=== PATIENT | male | born 1945 | race Caucasian/White ===

== ENCOUNTER 2016-12-01 11:04 | Emergency (ER) | payer OTHER ==
[2016-12-01 11:12] VITALS: BP 144/82; TEMP 97; BMI 34.1
--- NOTE | 2016-12-01 11:21 | ED.PDOC ---
General ED Provider: Dr. HUGH VORA-ER Chief Complaint: Rash Stated Complaint: kiki got this blistery rash above my right eye--it hurts Time Seen by Physician: 11:18 Mode of Arrival: Walk-In Information Source: Patient, Family Exam Limitations: No limitations Primary Care Provider: WHITNEY IBANEZ Nursing and Triage Documentation Reviewed and Agree: Yes Skin Complaint Exam - Skin Rash/Itching Complaint/Exam Onset/Duration: 24hrs Symptoms Are: Still present Initial Severity: Mild Current Severity: Moderate Location: above right eye Aggravating: Reports: None Alleviating: Reports: None Associated Signs and Symptoms: Denies: Difficulty breathing, Fever, Chills Skin Findings: Present: Vesicles, Lesions Differential Diagnoses: Varicella Zoster Review of Systems - Review Of Systems Constitutional: Reports: No symptoms Eyes: Reports: No symptoms Ears, Nose, Mouth, Throat: Reports: No symptoms Respiratory: Reports: No symptoms Cardiac: Reports: No symptoms GI: Reports: No symptoms : Reports: No symptoms Musculoskeletal: Reports: No symptoms Skin: Reports: Lesions (vesicular lesions above right eye), Rash Neurological: Reports: No symptoms Endocrine: Reports: No symptoms Hematologic/Lymphatic: Reports: No symptoms All Other Systems: Reviewed and Negative Past Medical History - Past Medical History Endocrine: Reports: Unknown Cardiovascular: Reports: Unknown Respiratory: Reports: Unknown Hematological: Reports: Unknown Gastrointestinal: Reports: Unknown Genitourinary: Reports: Unknown Neuro/Psych: Reports: Unknown Musculoskeletal: Reports: Unknown Cancer: Reports: Unknown - Surgical History General Surgical History: Reports: Other - Family History Family History: Reports: Unknown - Social History Smoking Status: Never smoker Hx Substance Use: No Alcohol Screening: None Lives: With family Physical Exam - Physical Exam Appearance: Well-appearing, No pain distress, Well-nourished Pain Distress: Mild Eyes: BELA, EOMI, Conjunctiva clear ENT: Ears normal, Nose normal, Oropharynx normal Neck: Supple Respiratory: Airway patent, Breath sounds clear, Breath sounds equal, Respirations nonlabored Cardiovascular: RRR, Pulses normal, No rub, No murmur GI/: Soft, Nontender, No masses, Bowel sounds normal, No Organomegaly Musculoskeletal: Normal strength, ROM intact, No edema, No calf tenderness Skin: Warm (noted vesicular rash over right eye into the eyebrown with edema of the upper lid) Neurological: Sensation intact, Motor intact, Reflexes intact, Cranial nerves intact, Alert, Oriented Psychiatric: Affect appropriate, Mood appropriate Critical Care Note - Critical Care Note Total Time (mins): 0 Course - Course Vital Signs: Temp Pulse Resp BP Pulse Ox 12/01/16 11:06 97.0 F L 88 16 144/82 H 97 Departure - Departure Time of Disposition: 11:20 Disposition: HOME SELF-CARE Discharge Problem: Herpes zoster Qualifiers: Herpes zoster complications: unspecified herpes zoster complication Qualifier Code: (B02.8) Zoster with other complications Instructions: Shingles (ED) Condition: Good Pt referred to PMD for follow-up: Yes Additional Instructions: zovirax 800mg qid x 7days---norco 7.5mg q 4hrs prn pain #15---see your eye doctor tomorrow to make certain no ocular involvement Allergies/Adverse Reactions: Allergies IVP dye Allergy (Severe, Uncoded 12/01/16 11:10) SOB, N/V Home Medications: Ambulatory Orders Allopurinol 300 mg PO DAILY 04/18/14 Aspirin [Ecotrin] 81 mg PO DAILY 04/18/14 Enalapril Maleate 20 mg PO DAILY 04/18/14 Exenatide [Byetta] 5 mcg SQ BID 04/18/14 Metoprolol Succinate 50 mg PO 04/18/14 Multivitamin [Daily Multiple Vitamin] 1 each PO DAILY 04/18/14 Rosuvastatin Calcium [Crestor] 20 mg PO DAILY 04/18/14 Disposition Discussed With: Patient, Family
== END 2016-12-01 11:30 | disposition home or self-care (01) ==
LOC: ED 11:04
DX: B02.8 Zoster with other complications (principal)
CPT/HCPCS: 99282

== ENCOUNTER 2017-07-04 10:41 | Emergency (ER) ==
[2017-07-04 10:53] VITALS: BP 149/85; TEMP 97.7; BMI 34.6
[2017-07-04] MEDS ORDERED: LIDOCAINE HCL 1% SDV SUBCUT STA (11:17)
[2017-07-04] MEDS ORDERED: TETANUS DIPHTHERIA TOXOIDS IM ONE (11:17)
--- NOTE | 2017-07-04 11:31 | ED.PDOC ---
General ED Provider: Dr. JOHANNA GREENFIELD Chief Complaint: Laceration Stated Complaint: LACERATION LEFT FOREARM Time Seen by Physician: 11:00 (BY A SHARP OBJECT) Mode of Arrival: Walk-In Information Source: Patient Exam Limitations: No limitations Primary Care Provider: WHITNEY IBANEZ Nursing and Triage Documentation Reviewed and Agree: Yes (SEE PHOTOS) Skin Complaint Exam - Laceration/Upper Ext. Complaint/Exam Location of Injury: Left (UPPER EXT SEE PHOTO TODAY 1 HR AGO) Mechanism of Injury: Laceration Onset/Duration: 1 HR Symptoms Are: Still present Initial Severity: Mild Current Severity: Mild Aggravating: None Alleviating: None Associated Signs and Symptoms: Denies: Fever, Chills, Erythema, Numbness, Tingling Differential Diagnoses: Laceration Review of Systems - Review Of Systems Constitutional: Reports: No symptoms Eyes: Reports: No symptoms Ears, Nose, Mouth, Throat: Reports: No symptoms Respiratory: Reports: No symptoms Cardiac: Reports: No symptoms GI: Reports: No symptoms : Reports: No symptoms Musculoskeletal: Reports: No symptoms Skin: Reports: Other (LACERATION) Neurological: Reports: No symptoms Endocrine: Reports: No symptoms Hematologic/Lymphatic: Reports: No symptoms All Other Systems: Reviewed and Negative Past Medical History - Past Medical History Previously Healthy: Yes Endocrine: Reports: Unknown Cardiovascular: Reports: Unknown Respiratory: Reports: Unknown Hematological: Reports: Unknown Gastrointestinal: Reports: Unknown Genitourinary: Reports: Unknown Neuro/Psych: Reports: Unknown Musculoskeletal: Reports: Unknown Cancer: Reports: Unknown - Surgical History General Surgical History: Reports: Other - Family History Family History: Reports: Unknown - Social History Smoking Status: Never smoker Hx Substance Use: No Alcohol Screening: None Physical Exam - Physical Exam Appearance: Well-appearing, No pain distress, Well-nourished Eyes: BELA, EOMI, Conjunctiva clear ENT: Ears normal, Nose normal, Oropharynx normal Respiratory: Airway patent, Breath sounds clear, Breath sounds equal, Respirations nonlabored Cardiovascular: RRR, Pulses normal, No rub, No murmur GI/: Soft, Nontender, No masses, Bowel sounds normal, No Organomegaly Musculoskeletal: Normal strength, ROM intact, No edema, No calf tenderness Skin: Warm, Dry (1 CM LACERATION LEFT FOREARM SEE PHOTOS) Neurological: Sensation intact, Motor intact, Reflexes intact, Cranial nerves intact, Alert, Oriented Psychiatric: Affect appropriate, Mood appropriate Procedures - Laceration/Wound Repair No standard instances Wound Description: Linear Wound Length (cm): 1 Wound Width: 2MM Wound Depth: 1MM Wound Explored: Clean Wound Irrigated: Yes Wound Prep: Saline, Hibiclens Anesthesia: Lidocaine (2 ML) Undermining: Minimal Wound Margins: Revised, Vermilion border aligned Suture Size and Type: 3PROLENE Number of Sutures: 3 Number of Kelin: 0 Layer Closure?: No Critical Care Note - Critical Care Note Total Time (mins): 0 Course - Course Orders, Labs, Meds: Orders Category Date Time Status Lidocaine HCl/Pf [Lidocaine HCl 1% Sdv] MEDS 07/04/17 11:17 Stat 5 ml SUBCUT ONCE STA Tetanus, Diphtheria Tox,Adult [Tetanus Diphtheria MEDS 07/04/17 11:17 Once Toxoids] 0.5 ml IM .ONCE ONE Medications Discontinued Medications Generic Name Dose Route Start Last Admin Trade Name Freq PRN Reason Stop Dose Admin Lidocaine HCl 5 ml 07/04/17 11:17 Lidocaine Hcl 1% Sdv SUBCUT 07/04/17 11:18 ONCE STA Tetanus/Diphtheria Toxoids 0.5 ml 07/04/17 11:17 Tetanus Diphtheria Toxoids IM 07/04/17 11:18 .ONCE ONE Vital Signs: Temp Pulse Resp BP Pulse Ox 07/04/17 10:42 97.7 F 106 H 16 149/85 H 95 Departure - Departure Time of Disposition: 11:32 Disposition: HOME SELF-CARE Discharge Problem: Laceration - injury Instructions: Laceration (ED), Care For Your Stitches (ED) Condition: Good Pt referred to PMD for follow-up: Yes Additional Instructions: Please call your Family Physician as soon as possible to schedule a follow-up appointment. Allergies/Adverse Reactions: Allergies IVP dye Allergy (Severe, Uncoded 07/04/17 10:49) SOB, N/V Home Medications: Ambulatory Orders Allopurinol 300 mg PO DAILY 04/18/14 Aspirin [Ecotrin] 81 mg PO DAILY 04/18/14 Enalapril Maleate 20 mg PO DAILY 04/18/14 Exenatide [Byetta] 5 mcg SQ BID 04/18/14 Metoprolol Succinate 50 mg PO DIRECTED 04/18/14 Multivitamin [Daily Multiple Vitamin] 1 each PO DAILY 04/18/14 Rosuvastatin Calcium [Crestor] 20 mg PO DAILY 04/18/14 Amlodipine Besylate [Norvasc] 5 mg PO DAILY 07/04/17 Cholecalciferol (Vitamin D3) [Vitamin D3] 2,000 unit PO DAILY 07/04/17 Clopidogrel Bisulfate [Plavix] 75 mg PO DAILY 07/04/17 Isosorbide Mononitrate [Imdur] 120 mg PO DAILY 07/04/17 Metformin HCl [Metformin HCl ER] 1,000 mg PO BEDTIME 07/04/17 Ranolazine [Ranexa] 500 mg PO BID 07/04/17
== END 2017-07-04 11:49 | disposition home or self-care (01) ==
LOC: ED 10:41
DX: S51.812A Laceration without foreign body of left forearm, initial encounter (principal); W26.9XXA Contact with unspecified sharp object(s), initial encounter
CPT/HCPCS: 90471; 90714; 99283